=== PATIENT | male | born 1975 | race Caucasian/White ===

== ENCOUNTER 2022-06-01 01:05 | Outpatient (CLI) | payer OTHER | END 2022-06-01 01:06 | disposition critical access hospital (66) | LOC: EMS 01:05 | DX: R07.89 Other chest pain (principal); R11.2 Nausea with vomiting, unspecified; F41.9 Anxiety disorder, unspecified | CPT/HCPCS: A0425; A0429 ==

== ENCOUNTER 2022-06-01 01:22 | Emergency (ER) | payer OTHER ==
--- NOTE | 2022-06-01 01:28 | ED Physician Documentation ---
History of Present Illness - Stated complaint Stated Complaint: CHEST PX - History obtained from History obtained from: Patient, EMS - Additonal information Additional information: 47-year-old male with past medical history of [place] presents with upset stomach this evening after eating [place] food followed by 3 episodes of nonbloody nonbilious nausea and vomiting and epigastric pain radiating up to the chest.Pain improved status post nitro and 325 of aspirin that he took at his hotel. Denies chest pain at present, shortness of breath, diaphoresis. No fever Review of Systems Constitutional: denies: Fever Cardiac: reports: Chest pain / pressure Respiratory: denies: Dyspnea GI: reports: Nausea, Vomiting, Diarrhea. denies: Abdominal Pain PD PAST MEDICAL HISTORY - Present Medications Home Medications: Ambulatory Orders Medication Instructions Recorded Confirmed Amlodipine Besylate [Norvasc] 2.5 mg PO 06/01/22 Aspirin Chewable [[place] 06/01/22 Aspirin] Atorvastatin Calcium [Lipitor] 06/01/22 Lisinopril [Zestril] 06/01/22 Metoprolol Succinate [Toprol Xl] 06/01/22 Nitroglycerin [Nitrostat] 06/01/22 - Allergies Allergies/Adverse Reactions: Allergies Allergy/AdvReac Type Severity Reaction Status Date / Time No Known Drug Allergies Allergy Verified 06/01/22 01:34 PD ED PE NORMAL - Vitals Vital signs reviewed: Yes - General General: Alert and oriented X 3, No acute distress, Well developed/nourished - HEENT HEENT: Atraumatic, PERRL, EOMI - Cardiac Cardiac: RRR - Respiratory Respiratory: No respiratory distress, Clear bilaterally Results - Vitals Vitals: Vital Signs - 24 hr 06/01/22 06/01/22 01:26 01:34 Temperature 37.1 C Heart Rate 98 104 H Respiratory 19 22 Rate Blood Pressure 180/95 H 180/95 H O2 Saturation 98 97 Oxygen O2 Source Room air - EKG (time done) 0135 Rate: Rate (enter#) (93) Rhythm: NSR [place]: Normal Intervals: Normal SC QRS: Normal Ischemia: Normal ST segments - Labs Labs: Laboratory Tests 06/01/22 06/01/22 06/01/22 01:31 01:31 01:31 WBC 10.7 RBC 5.14 Hgb 15.7 Hct 48.6 MCV 94.6 H MCH 30.5 MCHC 32.3 RDW 12.5 Plt Count 226 MPV 9.7 Neut # (Auto) 9.7 H Lymph # (Auto) 0.5 L Aiken # (Auto) 0.4 Eos # (Auto) 0.1 Baso # (Auto) 0.0 Absolute Nucleated RBC 0.00 Nucleated RBC % 0.0 Sodium 142 Potassium 3.7 Chloride 104 Carbon Dioxide 28 Anion Gap 10.0 BUN 17 Creatinine 1.0 Estimated GFR (MDRD) 80 L Glucose 142 H Calcium 9.2 Total Bilirubin 0.9 AST 24 ALT 30 Alkaline Phosphatase 70 Troponin I High Sens 5.1 Total Protein 8.1 Albumin 4.6 Globulin 3.5 Albumin/Globulin Ratio 1.3 Lipase 38 PD Medical Decision Making - ED course ED course: 39-year-old man with history of [place] presents with chest pain and vomiting after eating [place] food this past evening around noon. Including CBC, CMP abdominal panel, troponin uncovered no acute abnormalities. EKG noncontributory. Chest x-ray interpreted by myself and outside radiologist as no evidence of acute cardiopulmonary disease. Discussed with patient and return precautions. 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 History obtained from patient and EMS. Departure - Departure Disposition: 01 Home, Self Care Clinical Impression: Chest pain Condition: Good Instructions: ED Chest Pain Atypical Unkn Cause Comments: You were seen in the emergency department for evaluation of chest pain. Your l ab work, EKG, chest x-ray uncovered no emergent cause for your symptoms. Please follow-up with your twisting press operator and your primary care provider. Return to the emergency department for new or worsening symptoms or concerns.
[2022-06-01 01:38] LABS: BASOPHILS % (AUTO) 0.3 %; EOSINOPHILS # (AUTO) 0.1 10^3/uL (0.0-0.7); EOSINOPHILS % (AUTO) 0.8 %; HCT - HEMATOCRIT 48.6 % (42.0-52.0); HGB - HEMOGLOBIN 15.7 g/dL (14.0-18.0); LYMPHOCYTES # (AUTO) 0.5 10^3/uL (1.5-3.5); LYMPHOCYTES % (AUTO) 4.5 %; MEAN CORPUSCULAR HEMOGLOBIN 30.5 pg (27.0-31.0); MEAN CORPUSCULAR HGB CONC 32.3 g/dL (32.0-36.0); MEAN CORPUSCULAR VOLUME 94.6 fL (80.0-94.0); MEAN PLATELET VOLUME 9.7 fL (7.4-11.4); MONOCYTES # (AUTO) 0.4 10^3/uL (0.0-1.0); MONOCYTES % (AUTO) 3.9 %; NEUTROPHILS # (AUTO) 9.7 10^3/uL (1.5-6.6); NEUTROPHILS % (AUTO) 90.3 %; PLT - PLATELET COUNT 226 10^3/uL (130-450); RED BLOOD COUNT 5.14 10^6/uL (4.70-6.10); RED CELL DISTRIBUTION WIDTH 12.5 % (12.0-15.0); WHITE BLOOD COUNT 10.7 x10^3/uL (4.8-10.8)
[2022-06-01 01:52] LABS: ALBUMIN 4.6 g/dL (3.2-5.5); ALBUMIN/GLOBULIN RATIO 1.3 (1.0-2.2); BILIRUBIN,TOTAL 0.9 mg/dL (0.2-1.0); CALCIUM 9.2 mg/dL (8.5-10.3); POTASSIUM 3.7 mmol/L (3.5-5.0); TOTAL PROTEIN 8.1 g/dL (6.7-8.2)
--- NOTE | 2022-06-01 01:56 | XRAY Report ---
PROCEDURE: Chest 1 View X-Ray INDICATIONS: Chest Pain TECHNIQUE: One view of the chest was acquired. COMPARISON: None. FINDINGS: Surgical changes and devices: None. Lungs and pleura: No pleural effusions or pneumothorax. Lungs are clear. Mediastinum: Mediastinal contours appear normal. Heart size is normal. Bones and chest wall: No suspicious bony lesions. Overlying soft tissues appear unremarkable. IMPRESSION: 1. No acute cardiopulmonary disease. Reviewed by: Paxton Ramirez MD on 06/01/2022 1:55 AM [facility] Approved by: Paxton Ramirez MD on 06/01/2022 1:55 AM [facility] Station ID: [id number]
[2022-06-01 02:29] VITALS: BP 159/90
== END 2022-06-01 02:29 | disposition home or self-care (01) ==
LOC: ED 01:22
DX: R07.9 Chest pain, unspecified (principal)
CPT/HCPCS: 36415; 80053; 83690; 84484; 85025; 93005; 99283; 99284